=== PATIENT | male | born 1975 | race Caucasian/White ===

== ENCOUNTER 2017-03-23 08:47 | Day surgery (SDC) | payer BC, OTHER ==
[~2017-03-23] VITALS: Ht 167.6 cm; Wt 81.5 kg
[2017-03-23 09:51] VITALS: Ht 167.6 cm; Wt 81.5 kg
[2017-03-23] MEDS ORDERED: nexium (09:54)
[2017-03-23 10:07] VITALS: BP 130/89; PULSE 52; RESP 18
[2017-03-23] MEDS ORDERED: MIDAZOLAM 1 MG/ML 2 ML INJ ONE ×2 (10:45)
[2017-03-23] MEDS ORDERED: FENTAnyl 50 MCG/ML VIAL ONE (10:45)
--- NOTE | 2017-03-23 10:52 | GILP ---
DATE OF PROCEDURE: NAME OF PROCEDURES: Esophagogastroduodenoscopy and biopsy. SURGEON: Volodymyr Che MD PREOPERATIVE DIAGNOSES: 1. Abdominal pain. 2. Chronic heartburn. POSTOPERATIVE DIAGNOSES: 1. Hiatal hernia. 2. Reflux esophagitis with erosions at the lower end. 3. Gastritis with erosions. 4. Gastric mucosal biopsies were taken for Helicobacter pylori test. INDICATION FOR THE PROCEDURE: Mr. Mario Olmedo is a 42-year-old male patient who had upper abdominal pain associated with bloating. He also had chronic heartburn, not responding to therapy, so the pa lucas was scheduled for endoscopy for further evaluation. The procedure and possible complications are well explained to the patient, he understood and consen trista to the procedure. DESCRIPTION OF PROCEDURE: Under the influence of fentanyl and Versed, the gastroscope was carefully introduced into the esophagus and under direct vision, it was advanced to the stomach and through t he pylorus into the duodenal bulb and descending duodenum. FINDINGS: ESOPHAGUS: The patient had hiatal hernia with reflux esophagitis and erosions at the lower end. STOMACH: The patient had gastritis with erosions. Gastric mucosal biopsies were taken for H. pylor i test. DUODENUM: Normal. He tolerated the procedure very well and there was no complication from the procedure. At the end o f the procedure, he was awake with stable vital signs and he was discharged home to the care of his family. IMPRESSION: 1. Hiatal hernia. 2. Reflux esophagitis with erosions at the lower end. 3. Gastritis with erosions. 4. Gastric mucosal biopsies were taken for Helicobacter pylori test. PLAN: 1. Nexium 40 mg p.o. q.a.m. 2. Zantac 300 mg p.o. at bedtime. 3. Await H. pylori test report. Dictated By: VOLODYMYR SOLO/SUN Conf#: [id number] DID#: [id number]
[2017-03-23 11:00] VITALS: BP 103/64; PULSE 50; RESP 19
--- NOTE | 2017-03-28 10:57 | CONS ---
DATE OF ADMISSION: 03/23/2017 DATE OF CONSULTATION: TYPE OF CONSULTATION: Preoperative gastroenterology. Dear Dr. Bettencourt: I thank you very much for this kind referral. HISTORY OF PRESENT ILLNESS: Mr. Mario Olmedo is a 42-year-old male patient who has been referred to me for further evaluation of abdominal pain associated with bloating. The patient also complains of chronic heartburn. The patient is known to have had esophageal ulcer. He has been taking Nexium. His appetite has been good, and he is not losing any weight. He is not taking any nonsteroidal ant i-inflammatory agents. There is no history of gallstones. He does not have any fever, chills or ja undice. There is no history of liver disease. He denies any change in the bowel habit or rectal bl eeding. There is no past history of inflammatory bowel disease or colon neoplasm. He is not a hype rtensive or diabetic. He does not have any heart disease or lung problem. There is no history of k idney disease. SOCIAL HISTORY: He is a nonsmoker. He does not abuse alcohol. FAMILY HISTORY: Negative for gastrointestinal tract neoplasm. ALLERGIES: THERE IS NO HISTORY OF SIGNIFICANT DRUG ALLERGY. MEDICATIONS: Nexium 24HR p.o. q.a.m. PHYSICAL EXAMINATION: GENERAL: He is 5 feet 6 inches tall, and he weighs 174 pounds. HEART: Normal first and second heart sounds. LUNGS: Clear. ABDOMEN: Soft without any distention. Liver and spleen are not palpable. There are no masses. Th ere is no focal tenderness. Normal bowel sounds are heard. CENTRAL NERVOUS SYSTEM: Examination does not reveal any focal neurological deficit. IMPRESSION: 1. Upper abdominal pain associated with bloating. 2. Gastroesophageal reflux disease. 3. History of esophageal ulcer. PLAN: 1. Continue Nexium 24HR. 2. Endoscopic examination for further evaluation. The procedure and possible complications are well explained to the patient. He understands and cons ents to the procedure. I thank you once again. With warmest personal regards, Dictated By: JACKSON SOLO/SUN Conf#: [id number] DID#: [id number]
== END 2017-03-23 12:56 | disposition home or self-care (01) ==
LOC: GIL 08:47
PROVIDERS: ATTEND Internal Medicine Gastroenterology
DX: K44.9 Diaphragmatic hernia without obstruction or gangrene (principal); K29.60 Other gastritis without bleeding; K21.0 Gastro-esophageal reflux disease with esophagitis
CPT/HCPCS: 43239; 87081; J2250; J3010